=== PATIENT | male | born 1950 | race American Indian/Alaskan Native ===

== ENCOUNTER 2019-12-13 19:28 | Inpatient (IN) | payer MEDICARE, OTHER ==
[2019-12-13] MEDS ORDERED: levETIRAcetam 1000 MG/NS 0.75% 1,000 MG/100 ML BAG IV ONE (19:59)
[2019-12-13 20:26] LABS: Basophils % (Auto) 0.3 % (0.0-1.8); Eosinophils # (Auto) 0.2 K/mm3 (0.0-0.4); Eosinophils % (Auto) 2.9 % (0.0-4.3); Hematocrit 34.8 % (35.5-45.6); Hemoglobin 11.6 gm/dl (11.8-15.2); Lymphocytes % (Auto) 27.8 % (13.4-35.0); Mean Corpuscular HGB Conc 33 % (32-34); Mean Corpuscular Volume 92 fl (84-94); Monocytes # (Auto) 0.5 K/mm3 (0.0-0.8); Monocytes % (Auto) 7.3 % (0.0-7.3); Platelet Count 401 K/mm3 (140-440); Red Blood Count 3.79 M/mm3 (3.65-5.03); Red Cell Distribution Width 16.7 % (13.2-15.2)
--- NOTE | 2019-12-13 20:36 | Emergency Department Report ---
HPI - General Chief Complaint: Seizure Time Seen by Provider: 12/13/19 19:49 - HPI HPI: 69-year-old -Citizen Of [place] male presents to the emergency department via EMS from home with a witnessed seizure. Apparently his significant other found him seizing and called EMS. EMS says that when they arrived the patient was still having some convulsions but quickly came out of it and then was postictal. He did not receive anything for his symptoms prior to arrival or in route. He has a history of CVA, previous seizures. He is a tobacco smoker. The patient is awake and cooperative but does display confusion. He is currently AAO x2 to person and place but not time. He is currently a poor historian. ED Past Medical Hx - Past Medical History Hx Hypertension: Yes Hx CVA: Yes (02/25/14) Hx Congestive Heart Failure: No Hx Diabetes: No Hx Renal Disease: Yes Hx Seizures: Yes Hx Kidney Stones: Yes Hx Asthma: No Hx COPD: No - Surgical History Additional Surgical History: kidney stone lasar removal - Social History Smoking Status: Current Every Day Smoker Substance Use Type: Alcohol - Medications Home Medications: Home Medications Medication Instructions Recorded Confirmed Last Taken Type Aspirin 325 mg PO QDAY #30 tablet 02/28/14 12/13/19 Unknown Rx Simvastatin (Nf) [Zocor TAB] 20 mg PO QHS #30 tablet 02/28/14 12/13/19 Unknown Rx ED Review of Systems ROS: Stated complaint: SEIZURE Other details as noted in HPI Comment: Unobtainable due to pts medical conditions Physical Exam - Physical Exam Vital Signs: Vital Signs 12/13/19 19:32 Temperature 98.7 F Pulse Rate 84 Respiratory 13 Rate Blood Pressure 130/72 [left arm] O2 Sat by Pulse 95 Oximetry Physical Exam: GENERAL: The patient is well-developed well-nourished. HENT: Normocephalic. Atraumatic. Patient has moist mucous membranes. EYES: Extraocular motions are intact. NECK: Supple. Trachea is midline. CHEST/LUNGS: Clear to auscultation. There is no respiratory distress noted. HEART/CARDIOVASCULAR: Regular. There is no tachycardia. ABDOMEN: Abdomen is soft, nontender. Patient has normal bowel sounds. There is no abdominal distention. SKIN: Skin is warm and dry. NEURO: The patient is awake, alert, and cooperative. AAO x2 to person and place but not time. The patient thinks it is 1979 and the current president is President Eugene. The patient has no sensory deficits. Normal speech. MUSCULOSKELETAL: There is no tenderness or deformity. There is no limitation range of motion. ED Course Vital Signs 12/13/19 19:32 Temperature 98.7 F Pulse Rate 84 Respiratory 13 Rate Blood Pressure 130/72 [left arm] O2 Sat by Pulse 95 Oximetry - Reevaluation(s) Reevaluation #1: 12/14/19 00:20 I was able to speak to the patient's who says that she witnessed him having a seizure. Just after the seizure the patient began having some slurred speech and talking nonsensically. He has a history of CVA with some residual right- sided weakness. There is some history of dementia. However the also says that this was similar to how he presented prior to his previous CVA and that was her initial concern. ED Medical Decision Making - Lab Data Result diagrams: 12/13/19 20:02 12/13/19 20:02 - EKG Data -: EKG Interpreted by Me EKG shows normal: sinus rhythm, axis, intervals, QRS complexes, ST-T waves Rate: normal - EKG Data When compared to previous EKG there are: previous EKG unavailable Interpretation: normal EKG - Radiology Data Radiology results: report reviewed, image reviewed interpreted by me: Chest x-ray does not show any acute process. There are no pleural effusions, obvious pneumonia and there is no pneumothorax. NONENHANCED CT SCAN OF THE HEAD: INDICATION / CLINICAL INFORMATION: 69 years Male; Altered mental status. TECHNIQUE: Routine CT head without contrast. All CT scans at this location are performed using CT dose reduction for ALARA by means of automated exposure control. COMPARISON: CT scan of the head 03/07/2014 FINDINGS: BRAIN / INTRACRANIAL CONTENTS: No acute hemorrhage, mass effect, midline shift, hydrocephalus, or acute, large territorial infarct. Chronic lacune is seen in both basal ganglia both thalami. Periventricular low attenuation areas and a focal white matter lesions are seen due to chronic small vessel disease. CRANIOCERVICAL JUNCTION: No significant abnormality. ORBITS: No significant abnormality of visualized orbits. SINUSES / MASTOIDS: No significant abnormality of the visualized paranasal sinuses or mastoid air cells. ADDITIONAL FINDINGS: None. 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 At the time of my examination the patient is awake and cooperative but is AAO x2 to person and place but not time. CT scan of the head did not show any bleed, shift, mass, ischemia, or any other acute process. An EKG was done that does not show any morphology consistent with ST elevation NV. Patient's labs have been unremarkable including CBC, metabolic panel, ammonia level, troponin, urinalysis, UDS and blood alcohol level. The patient was once again reevaluated after he had been in the emergency department for about 3 hours and he still is AAO x2. I was later able to speak with the patient's and the patient apparently does have some history of dementia so it is unknown whether or not this altered mental status is acute. However the does say that the patient is usually quite alert and not today is seizure-like activity and confusion was initially how he presented for a previous CVA. For these reasons the patient will be admitted to the hospital for an observational stay and was accepted for admission by the hospitalist, Dr. Macdonald. Critical Care Time: No Critical care attestation.: If time is entered above; I have spent that time in minutes in the direct care of this critically ill patient, excluding procedure time. ED Disposition Clinical Impression: Seizure Altered mental status Qualifiers: Altered mental status type: unspecified Qualified Code(s): R41.82 - Altered mental status, unspecified Disposition: DC-[id number] OP ADMIT IP TO THIS HOSP Is pt being admited?: Yes Condition: Fair Time of Disposition: 22:16
[2019-12-13 20:37] LABS: INR 1.03 (0.87-1.13)
[2019-12-13 20:55] LABS: Alanine Aminotransferase 12 units/L (7-56); Albumin 4.2 g/dL (3.9-5); BUN/Creatinine Ratio 10; Blood Urea Nitrogen 12 mg/dL (9-20); Calcium 9.8 mg/dL (8.4-10.2); Hemolysis Index 4
[2019-12-13 21:02] LABS: Bilirubin,Urine NEG (Negative); Blood,Urine MOD (Negative); Color,Urine Yellow (Yellow); Mucus,Urine FEW /HPF; Protein,Urine <15 mg/dL mg/dL (Negative); Urobilinogen,Urine < 2.0 mg/dL (<2.0)
[2019-12-13 21:10] LABS: Amphetamine Screen,Urine PRESUMPTIVE NEGATIVE; Benzodiazepines Screen,Urine PRESUMPTIVE NEGATIVE; Cannabinoid Screen,Urine PRESUMPTIVE NEGATIVE; Cocaine Screen,Urine PRESUMPTIVE NEGATIVE; Methadone Screen,Urine PRESUMPTIVE NEGATIVE; Opiate Screen,Urine PRESUMPTIVE NEGATIVE
[2019-12-13] MEDS ORDERED: LORazepam 2 MG/ML VIAL IV PRN (22:49)
[2019-12-13] MEDS ORDERED: ACETAMINOPHEN 650 MG RECT SUPP PR PRN (22:50)
[2019-12-14] MEDS: SODIUM CHLORIDE 0.9% 1000 ML 1,000 ML IV SCH ×2 (03:11→12:03)
[2019-12-14] MEDS: ASPIRIN 325 MG TAB PO SCH (09:42)
[2019-12-14] MEDS ORDERED: levETIRAcetam 750 MG in DEXTROSE 5% IN WATER 100 ML IV SCH (10:00)
[2019-12-14] MEDS ORDERED: PNEUMOCOCCAL 23 Valent 0.5 ML VIAL IM ONE (12:00)
[2019-12-14] MEDS ORDERED: NON-FORMULARY EACH (Simvastatin 20 MG) PO SCH (22:00)
[2019-12-14] MEDS: PRAVASTATIN 40 MG TAB PO SCH (22:14)
[2019-12-14] MEDS: levETIRAcetam 500 MG TAB PO SCH (22:14)
[2019-12-15] MEDS: SODIUM CHLORIDE 0.9% 1000 ML 1,000 ML IV SCH ×3 (00:36→10:21)
[2019-12-15] MEDS: levETIRAcetam 500 MG TAB PO SCH ×2 (09:09→22:00)
[2019-12-15] MEDS: ASPIRIN 325 MG TAB PO SCH (09:09)
[2019-12-15 12:50] LABS: Alanine Aminotransferase 8 units/L (7-56); Albumin 3.7 g/dL (3.9-5); BUN/Creatinine Ratio 13; Blood Urea Nitrogen 9 mg/dL (9-20); Calcium 8.7 mg/dL (8.4-10.2); Hemolysis Index 1
[2019-12-15] MEDS ORDERED: NICOTINE 14 MG/24 HR PATCH TD ONE (18:06)
[2019-12-15] MEDS: PRAVASTATIN 40 MG TAB PO SCH (22:26)
[2019-12-16 08:31] VITALS: BP 146/76
[2019-12-16] MEDS: ASPIRIN 325 MG TAB PO SCH (09:58)
[2019-12-16] MEDS: levETIRAcetam 500 MG TAB PO SCH (09:58)
[2019-12-16] MEDS ORDERED: CLOPIDOGREL 75 MG TAB PO SCH (14:00)
== END 2019-12-16 15:02 | disposition home or self-care (01) | DRG 100 ==
LOC: ED 19:28 → 4A 22:16 → OBSVTOIN 12-15 15:56
PROVIDERS: ADMIT Internal Medicine; ATTEND Internal Medicine
PROC: 3E0234Z Introduction of Serum, Toxoid and Vaccine into Muscle, Percutaneous Approach (ICD-10-PCS; principal; 2019-12-14)
DX: R56.9 Unspecified convulsions (principal); I63.9 Cerebral infarction, unspecified; Z23 Encounter for immunization; Z87.442 Personal history of urinary calculi; F03.90 Unspecified dementia, unspecified severity, without behavioral disturbance, psychotic disturbance, mood disturbance, and anxiety; I12.9 Hypertensive chronic kidney disease with stage 1 through stage 4 chronic kidney disease, or unspecified chronic kidney disease; N18.9 Chronic kidney disease, unspecified; E78.5 Hyperlipidemia, unspecified; F19.10 Other psychoactive substance abuse, uncomplicated; G83.21 Monoplegia of upper limb affecting right dominant side; Z71.6 Tobacco abuse counseling; F17.210 Nicotine dependence, cigarettes, uncomplicated; R20.0 Anesthesia of skin
CPT/HCPCS: 36415; 70450; 70544; 70547; 70551; 71045; 80053; 80307; 80320; 81001; 82140; 84443; 84484; 85025; 85610; 90732; 93005; 93306; 99406; G0378; A9270-GY; G0480; J1953; J7030